=== PATIENT | male | born 1985 | race Caucasian/White ===

== ENCOUNTER → 2020-07-02 | Outpatient (CLI) | payer OTHER ==
[~2020-07-02] MED LIST: CYCL10TA2 PO; HYDR-3248 PO
[2020-07-02 11:26] LABS: BASOPHILS % (AUTO) 1 % (0-1); EOSINOPHILS % (AUTO) 1 % (1-7); LYMPHOCYTES % (AUTO) 17 % (22-44); MD NO; MEAN CORPUSCULAR HEMOGLOBIN 30.3 pg (27.5-34.5); MEAN CORPUSCULAR HGB CONC 33.9 g/dL (33.2-36.2); MEAN PLATELET VOLUME 7.4 fL (7.4-10.4); MONOCYTES % (AUTO) 8 % (2-9); NEUTROPHILS % (AUTO) 74 % (42-75); PLATELET COUNT 242 x10^3/uL (130-400); RED BLOOD COUNT 5.38 x10^6/uL (4.38-5.82); RED CELL DISTRIBUTION WIDTH 13.7 % (9.4-14.8)
[2020-07-02 11:35] LABS: ANION GAP 3 mmol/L (5-15); CALCIUM 8.8 mg/dL (8.5-10.1); CHLORIDE 105 mmol/L (98-107); CREATININE 0.86 mg/dL (0.7-1.3)
[2020-07-02 11:38] LABS: INTERNATIONAL NORMALIZED RATIO 1.02 (0.93-1.1); PROTHROMBIN TIME 10.9 Seconds (9.6-11.5)
== END | disposition home or self-care (01) ==
LOC: STAR 10:26
PROVIDERS: ATTEND Neurological Surgery
DX: Z01.812 Encounter for preprocedural laboratory examination (principal); Z20.822 Contact with and (suspected) exposure to COVID-19; M51.26 Other intervertebral disc displacement, lumbar region; R94.31 Abnormal electrocardiogram [ECG] [EKG]
CPT/HCPCS: 36415; 71046; 80048; 85025; 85610; 85730; 93005; U0003

== ENCOUNTER 2020-07-07 05:59 | Day surgery (SDC) | payer OTHER ==
[~2020-07-07] VITALS: Ht 185.4 cm; Wt 133.0 kg
[2020-07-07] MEDS ORDERED: LACTATED RINGERS 1,000 ML IV SCH (07:00)
[2020-07-07] MEDS ORDERED: CHLORHEXIDINE 15 ML UDC PO ONE (07:00)
[2020-07-07] MEDS ORDERED: LIDOCAINE-MPF 1%, 2ML INFIL ONE (07:00)
[2020-07-07] MEDS ORDERED: BACITRACIN 50,000 UNIT ONE (07:01)
[2020-07-07] MEDS ORDERED: BUPIVACAINE/PF 0.5% ONE (07:01)
[2020-07-07] MEDS ORDERED: EPINEPHRINE 1 MG/ML, 1ML ONE (07:01)
[2020-07-07] MEDS ORDERED: FENTANYL PF 250 MCG/5ML ONE ×2 (07:03→08:31)
[2020-07-07] MEDS ORDERED: MIDAZOLAM 1 MG/ML, 2ML ONE (07:03)
[2020-07-07] MEDS ORDERED: SUCCINYLCHOLINE 20 MG/ML, 10ML ONE (07:26)
[2020-07-07] MEDS ORDERED: NEOSTIGMINE 1 MG/ML, 10ML ONE (07:26)
[2020-07-07] MEDS ORDERED: ROCURONIUM 10 MG/ML,10ML ONE (07:26)
[2020-07-07] MEDS ORDERED: ONDANSETRON 2MG/ML, 2ML ONE (07:26)
[2020-07-07] MEDS ORDERED: CEFAZOLIN 1,000 MG ONE (07:26)
[2020-07-07] MEDS ORDERED: DEXAMETHASONE 4 MG/ML, 5ML ONE (07:26)
[2020-07-07] MEDS ORDERED: PROPOFOL 10 MG/ML, 20ML ONE (07:26)
[2020-07-07] MEDS ORDERED: GLYCOPYRROLATE 0.2MG/1ML, 5ML ONE (07:26)
[2020-07-07] MEDS ORDERED: PROPOFOL 50 ML ONE (08:36)
[2020-07-07] MEDS ORDERED: LORazepam 2 MG/ML, 1ML IVPush PRN (09:00)
[2020-07-07] MEDS ORDERED: ACETAMINOPHEN 325 MG TABLET PO PRN (09:00)
[2020-07-07] MEDS ORDERED: hydrALAzine 20 MG/ML, 1ML IV PRN (09:00)
[2020-07-07] MEDS ORDERED: MEPERIDINE/PF 25MG/0.5ML IVPush PRN (09:00)
[2020-07-07] MEDS ORDERED: METHOCARBAMOL 1,000 MG in DEXTROSE 5% 100 ML IV PRN (09:00)
[2020-07-07] MEDS ORDERED: ONDANSETRON 2MG/ML, 2ML IVPush PRN (09:00)
[2020-07-07] MEDS ORDERED: PROMETHAZINE 25 MG/ML, 1ML IVPush PRN (09:00)
[2020-07-07] MEDS ORDERED: OXYcodone 5 MG/5 ML ORAL.SOL UDC PO PRN (09:00)
[2020-07-07] MEDS ORDERED: EPHEDRINE 50 MG/ML, 1ML IVPush PRN (09:00)
[2020-07-07] MEDS ORDERED: LABETALOL 5MG/ML, 20ML IV PRN (09:00)
[2020-07-07] MEDS ORDERED: FENTANYL PF 100 MCG/2ML ONE (09:10)
[2020-07-07] MEDS ORDERED: OXYcodone 5 MG/5 ML ORAL.SOL UDC ONE (09:10)
[2020-07-07] MEDS ORDERED: ACETAMINOPHEN 650 MG/20.3 ML UDC ONE (09:10)
[2020-07-07] MEDS ORDERED: HYDROmorphone 1 MG/ML, 1ML INJ ONE ×2 (09:18→10:31)
[2020-07-07] MEDS: FENTANYL PF 100 MCG/2ML IV PRN ×2 (09:20→09:25)
[2020-07-07] MEDS: HYDROmorphone 1 MG/ML, 1ML INJ IVPush PRN ×3 (09:29→10:37)
[2020-07-07] MEDS ORDERED: PHARMACY MAY ADJ FOR RENAL FX MC PRN (14:30)
[2020-07-07] MEDS: HYDROcodone/APAP 10/325 MG TABLET PO PRN ×2 (15:05→16:40)
== END 2020-07-07 19:20 | disposition home or self-care (01) ==
LOC: OUT 05:59
PROVIDERS: ATTEND Neurological Surgery
DX: M51.17 Intervertebral disc disorders with radiculopathy, lumbosacral region (principal); Z79.891 Long term (current) use of opiate analgesic; Z79.899 Other long term (current) drug therapy; Z88.8 Allergy status to other drugs, medicaments and biological substances
CPT/HCPCS: 63030; 72100; J0171; J0330; J0690; J1100; J1170; J2250; J2405; J2704; J2710; J2800; J3010; J7120